=== PATIENT | female | born 1975 | race African-American/Black ===

== ENCOUNTER 2017-02-28 14:30 | Emergency (ER) | payer MEDICAID ==
[~2017-02-28] VITALS: Ht 170.2 cm; Wt 120.0 kg
[~2017-02-28 14:30] MED LIST: ACIP20TA6 OR; IBUP800T23 PO; OXYC-360 PO; PREV30CA36 PO; ZITH250T PO
[2017-02-28 14:31] VITALS: BP 183/90; PULSE 107; TEMP 98.5; O2SAT 100
--- NOTE | 2017-02-28 14:46 | PD ---
Physical Exam Time Seen by Provider: 14:44 Narrative 41yo F c/o LLQ abd pain x1 day. Denies fever, vomiting, diarrhea. Does not have menstrual periods anymore. Patient seen in triage. VS reviewed. Patient awaiting bed placement. Data Data Last Documented VS Vital Signs Date Time Temp Pulse Resp B/P Pulse Ox O2 Delivery O2 Flow Rate FiO2 02/28/17 14:31 98.5 107 183/90 100 MDM Supervised Visit with ZEENAT: Sugey Prieto Feb 28, 2017 14:45
[2017-02-28 16:09] LABS: BACTERIA, URINE MOD /hpf; BLOOD, URINE NEG (NEG); COMMENT (UR) CULTURE INDICATED; CULTURE IF INDICATED CULTURE INDICATED; GLUCOSE,URINE NEG (NEG); KETONE, URINE NEG (NEG); MUCUS URINE FEW /lpf (OCC); NITRITE,URINE NEG (NEG); SQUAMOUS EPITHELIAL CELL URINE 3 /hpf (0-5); URINE COLOR YELLOW (YELLW/STRAW)
== END 2017-02-28 18:48 | disposition left against medical advice (07) ==
LOC: NED 14:30
DX: R10.32 Left lower quadrant pain (principal)
CPT/HCPCS: 81001; 87086; 99281